=== PATIENT | female | born 1950 | race Caucasian/White ===

== ENCOUNTER → 2016-10-05 | Outpatient (CLI) | payer MEDICARE ==
--- NOTE | 2016-10-05 15:15 | WOMENS IMAGING REPORT ---
EXAM DESCRIPTION: 3D SCREENING MAMMO BILAT COMPLETED DATE/TIME: 10/05/2016 2:24 pm REASON FOR STUDY: Z12.31, ROUTINE SCREENING MAMMO Z12.31 ENCNTR SCREEN MAMMOGRAM FOR MALIGNANT NEOP LASM OF ALLY COMPARISON: 10/23/2014 and 09/28/2013. TECHNIQUE: Standard craniocaudal and mediolateral oblique views of each breast recorded using digita l acquisition and breast tomosynthesis. LIMITATIONS: None. FINDINGS: No masses, calcifications or architectural distortion. No areas of suspicion. Read with the assistance of CAD. .[facility] - R2 Cenova Version 1.3 .[facility] Imaging - R2 Cenova Version 1.3 .[facility] - R2 Cenova Version 2.4 [place] [place] Cenova Version 2.4 .[facility] - R2 Ladle Filler Version 9.2 IMPRESSION: NORMAL MAMMOGRAM. BIRADS 1. BREAST DENSITY: c. The breasts are heterogeneously dense, which may obscure small masses. BIRAD: 1 NEGATIVE RECOMMENDATION: ROUTINE SCREENING COMMENT: The patient has been notified of the results by letter per SA requirements. Additional no tification policies are in place for contacting patient with suspicious or incomplete findings. Quality ID #225: The [employer] recommends an annual screening mammogram for women aged 40 years or over. This facility utilizes a reminder system to ensure that all patients receive reminder letters, and/or direct phone calls for appointments. This includes reminders for routine scr eening mammograms, diagnostic mammograms, or other Breast Imaging Interventions when appropriate. Th is patient will be placed in the appropriate reminder system. The [employer] (ACR) has developed recommendations for screening MRI of the breast s in certain patient populations, to be used in conjunction with mammography. Breast MRI surveillanc e may be appropriate for women with more than 20% lifetime risk of developing breast cancer as deter mined by genetic testing, significant family history of the disease, or history of mantle radiation f or Hodgkins Disease. ACR Practice Guidelines 2008. DBT Technology DBT is a type of tomographic mammography. With conventional mammography, overlapping breast tissue ma y make lesions difficult to detect, even with good compression. DBT uses an x-ray tube that rotates a round the breast, taking images at different angles. These images are then combined to create thin sl ices of the breast that the radiologist can view as a 3D reconstruction. The Maven7 unit can perform full-field digital mammograms (2D imaging); or DBT (3D imaging); or both, in a combination mode that quickly performs both the mammogram and the tomosynthesis scan while the breast is still compressed. PQRS 6045F: Fluoroscopic imaging is not utilized for breast tomosynthesis. TECHNICAL DOCUMENTATION: FINDING NUMBER: (1) ASSESSMENT: (1) JOB ID: [id number] [employer]- All Rights Reserved
== END ==
LOC: WI 13:42
PROVIDERS: ATTEND Internal Medicine
DX: Z12.31 Encounter for screening mammogram for malignant neoplasm of breast (principal)
CPT/HCPCS: 77063; G0202; 77067

== ENCOUNTER → 2017-09-28 | Outpatient (CLI) | payer MEDICARE ==
--- NOTE | 2017-09-28 12:29 | RADIOLOGY REPORT (SQ) ---
EXAM DESCRIPTION: MRI HEAD COMBO COMPLETED DATE/TIME: 09/28/2017 12:07 pm REASON FOR STUDY: ASYMETRICAL HEARING LOSS H91.8X1 OTHER SPECIFIED HEARING LOSS, RIGHT EAR COMPARISON: None. TECHNIQUE: Multiplanar imaging includes noncontrasted T1, T2, FLAIR, diffusion with ADC map and post gadolinium contrast T1 sequences. Images stored on PACS. Additional thin section axial and coronal T1 pre and post-contrast images were obtained through the i nternal auditory canals and inner ear structures. Thin section axial T2 weighted images through the internal auditory canals and inner ear structures. CONTRAST TYPE AND DOSE: 15 mL Prohance. RENAL FUNCTION: Estimated GFR 54 LIMITATIONS: None. FINDINGS: ANATOMY: No anomalies. Normal vascular flow voids. Pituitary fossa normal. CSF SPACES: Normal in size and contour. No hemorrhage. CEREBRUM: No MR evidence of acute ischemic change, acute intracranial hemorrhage, mass effect, or mid line shift. There is spotty bifrontal and biparietal increased FLAIR/ T2 signal in the hemispheric w jacob matter from minimal age-appropriate small vessel ischemic change. POSTERIOR FOSSA: No signal alteration. No hemorrhage. No edema, masses, or mass effect. Internal leena tory canals, cerebellopontine angles, mastoids normal. No abnormal enhancement post contrast. DIFFUSION IMAGING: Negative for acute or subacute infarction. ORBITS: No masses. Globes normal. PARANASAL SINUSES: No fluid levels. Mucosa normal. OTHER: No other significant finding. IMPRESSION: ESSENTIALLY NORMAL FOR AGE MRI OF THE BRAIN WITHOUT AND WITH INTRAVENOUS GADOLINIUM CONT RAST. EVIDENCE OF ACUTE STROKE: NO. TECHNICAL DOCUMENTATION: JOB ID: [id number] [employer]- All Rights Reserved Reading location - IP/workstation name: [facility] [email or web address]
== END ==
LOC: RAD 10:35
PROVIDERS: ATTEND Otolaryngology
DX: H91.8X1 Other specified hearing loss, right ear (principal)
CPT/HCPCS: 82565; 70553; A9576

== ENCOUNTER → 2018-05-02 | Outpatient (CLI) | payer MEDICARE ==
--- NOTE | 2018-05-03 13:41 | WOMENS IMAGING REPORT ---
EXAM DESCRIPTION: 3D SCREENING MAMMO BILAT COMPLETED DATE/TIME: 05/02/2018 2:07 pm REASON FOR STUDY: Z12.31 SCREENING MAMMO Z12.31 ENCNTR SCREEN MAMMOGRAM FOR MALIGNANT NEOPLASM OF B RE COMPARISON: 10/05/2016 and 10/23/2014. TECHNIQUE: Standard craniocaudal and mediolateral oblique views of each breast recorded using digita l acquisition and breast tomosynthesis. LIMITATIONS: None. FINDINGS: No masses, calcifications or architectural distortion. No areas of suspicion. Read with the assistance of CAD. .[facility] - R2 Cenova Version 1.3 .[facility] Imaging - R2 Cenova Version 2.1 .[facility] Imaging - R2 Cenova Version 2.4 .[facility] [place] - R2 Cenova Version 2.4 .[facility] - R2 Buttonholer Version 9.2 IMPRESSION: NORMAL MAMMOGRAM. BIRADS 1. BREAST DENSITY: c. The breasts are heterogeneously dense, which may obscure small masses. BIRAD: 1 NEGATIVE RECOMMENDATION: ROUTINE SCREENING COMMENT: The patient has been notified of the results by letter per SA requirements. Additional no tification policies are in place for contacting patient with suspicious or incomplete findings. Quality ID #[id number]: The [employer] recommends an annual screening mammogram for women aged 40 years or over. This facility utilizes a reminder system to ensure that all patients receive reminder letters, and/or direct phone calls for appointments. This includes reminders for routine scr eening mammograms, diagnostic mammograms, or other Breast Imaging Interventions when appropriate. Th is patient will be placed in the appropriate reminder system. The [employer] (ACR) has developed recommendations for screening MRI of the breast s in certain patient populations, to be used in conjunction with mammography. Breast MRI surveillanc e may be appropriate for women with more than 20% lifetime risk of developing breast cancer as deter mined by genetic testing, significant family history of the disease, or history of mantle radiation f or Hodgkins Disease. ACR Practice Guidelines 2008. DBT Technology DBT is a type of tomographic mammography. With conventional mammography, overlapping breast tissue ma y make lesions difficult to detect, even with good compression. DBT uses an x-ray tube that rotates a round the breast, taking images at different angles. These images are then combined to create thin sl ices of the breast that the radiologist can view as a 3D reconstruction. The G[employer] unit can perform full-field digital mammograms (2D imaging); or DBT (3D imaging); or both, in a combination mode that quickly performs both the mammogram and the tomosynthesis scan while the breast is still compressed. PQRS 6045F: Fluoroscopic imaging is not utilized for breast tomosynthesis. TECHNICAL DOCUMENTATION: FINDING NUMBER: (1) ASSESSMENT: (1) JOB ID: [id number] [employer]- All Rights Reserved Reading location - IP/workstation name: [email or web address]
== END ==
LOC: WI 13:07
PROVIDERS: ATTEND Obstetrics & Gynecology Gynecology
DX: Z12.31 Encounter for screening mammogram for malignant neoplasm of breast (principal)
CPT/HCPCS: 77063; 77067

== ENCOUNTER 2019-09-29 11:58 | Inpatient (IN) | payer MEDICARE ==
[2019-09-29] MEDS ORDERED: ASPIRIN 81 MG TABLET, CHEWABLE PO ONE (12:29)
[2019-09-29] MEDS ORDERED: METOCLOPRAMIDE HCL INJ/PF 10 MG/2 ML SDV IV ONE (12:31)
[2019-09-29] MEDS ORDERED: MAG HYDROX/AL HYDROX/SIMETH SUSP 30 ML UDCUP PO PRN (12:31)
[2019-09-29] MEDS ORDERED: LIDOCAINE 2% VISCOUS SOLN 15 ML UDCUP PO ONE (12:31)
--- NOTE | 2019-09-29 12:33 | ER Document Report ---
ED Medical Screen (RME) - General Chief Complaint: Chest Pain Stated Complaint: CHEST PAIN Time Seen by Provider: 09/29/19 12:28 Primary Care Provider: WHIT WINSLOW MD [Primary Care Provider] - Follow up as needed Mode of Arrival: Ambulatory Information source: Patient Notes: 69-year-old female presents to ED for complaint of upper back and chest pain. She states the chest pain radiates to her shoulder. She states she does have a history of reflux and she took some reflux medicine last night when she had some reflux but this is not her reflux type pain. Patient has a history of reflux fractured ankle high cholesterol bilateral tubal gases and cholecystectomy. She does not smoke drink or drugs. I have greeted and performed a rapid initial assessment of this patient. A comprehensive ED assessment and evaluation of the patient, analysis of test results and completion of medical decision making process will be conducted by an additional ED providers. TRAVEL OUTSIDE OF THE [place] IN LAST 30 DAYS: No - Related Data Allergies/Adverse Reactions: Sulfa (Sulfonamide Antibiotics) Allergy (Verified 01/30/13 08:49) Home Medications: Xanax, levothyroxine, Tramadol Past Medical History - Past Medical History Cardiac Medical History: Reports: Hx Hypercholesterolemia Endocrine Medical History: Reports: Hx Hypothyroidism Traumatic Medical History: Reports: Hx Fractures - FOOT Past Surgical History: Reports: Hx Cholecystectomy, Hx Tubal Ligation - Immunizations Hx Diphtheria, Pertussis, Tetanus Vaccination: No Physical Exam - Vital signs Vitals: Temp Pulse Resp BP Pulse Ox 97.8 F 64 20 155/80 H 97 09/29/19 12:11 09/29/19 12:11 09/29/19 12:11 09/29/19 12:11 09/29/19 12:11 Course - Vital Signs Vital signs: Temp Pulse Resp BP Pulse Ox 97.8 F 64 20 155/80 H 97 09/29/19 12:11 09/29/19 12:11 09/29/19 12:11 09/29/19 12:11 09/29/19 12:11 Doctor's Discharge - Discharge Referrals: WHIT WINSLOW MD [Primary Care Provider] - Follow up as needed
--- NOTE | 2019-09-29 12:58 | RADIOLOGY REPORT (SQ) ---
EXAM DESCRIPTION: CHEST 2 VIEWS IMAGES COMPLETED DATE/TIME: 09/29/2019 12:43 pm REASON FOR STUDY: Chest pain COMPARISON: 10/08/2008 EXAM PARAMETERS: NUMBER OF VIEWS: two views TECHNIQUE: Digital Frontal and Lateral radiographic views of the chest acquired. RADIATION DOSE: NA LIMITATIONS: none FINDINGS: LUNGS AND PLEURA: Minimal atelectasis in the left base. Lung raines otherwise clear. No effusions. MEDIASTINUM AND HILAR STRUCTURES: No masses or contour abnormalities. HEART AND VASCULAR STRUCTURES: Heart normal size. No evidence for failure. BONES: No acute findings. HARDWARE: None in the chest. OTHER: No other significant finding. IMPRESSION: No significant findings in the chest. TECHNICAL DOCUMENTATION: JOB ID: [id number] 2010 [employer]- All Rights Reserved Reading location - IP/workstation name: [email or web address]
--- NOTE | 2019-09-29 13:06 | EKG REPORT ---
SEVERITY:- ABNORMAL ECG - SINUS RHYTHM REPOL ABNRM, PROBABLE ISCHEMIA, INFERIOR LDS BORDERLINE ST ELEVATION, LATERAL LEADS : Confirmed by: Isaak Levin MD 29-Sep-2019 13:06:14
[2019-09-29 13:10] LABS: ABSOLUTE EOSINOPHILS # (AUTO) 0.1 10^3/uL (0.0-0.6); ABSOLUTE LYMPHOCYTES (AUTO) 1.5 10^3/uL (0.5-4.7); ABSOLUTE MONOCYTES (AUTO) 0.7 10^3/uL (0.1-1.4); ABSOLUTE NEUT (AUTO) 4.2 10^3/uL (1.7-8.2); BASOPHILS % (AUTO) 0.4 % (0-2); EOSINOPHILS % (AUTO) 1.1 % (0-6); HEMATOCRIT 42.6 % (36.0-47.0); HEMOGLOBIN 14.5 g/dL (12.0-15.5); LYMPHOCYTES % (AUTO) 22.4 % (13-45); MEAN CORPUSCULAR HEMOGLOBIN 32.2 pg (27.0-33.4); MEAN CORPUSCULAR VOLUME 95 fl (80-97); MONOCYTES % (AUTO) 11.4 % (3-13); PLATELET COUNT 246 10^3/uL (150-450); RED CELL DISTRIBUTION WIDTH 14.1 % (11.5-14.0); SEGMENTED NEUTROPHILS % (AUTO) 64.7 % (42-78); TOTAL CELLS COUNTED % (AUTO) 100 %; WHITE BLOOD COUNT 6.6 10^3/uL (4.0-10.5)
[2019-09-29 13:30] LABS: ALBUMIN 4.6 g/dL (3.5-5.0); ALKALINE PHOSPHATASE 71 U/L (38-126); ANION GAP 9 (5-19); ASPARTATE AMINO TRANSFERASE 24 U/L (14-36); BILIRUBIN,TOTAL 0.5 mg/dL (0.2-1.3); BLOOD UREA NITROGEN 17 mg/dL (7-20); CALCIUM 9.7 mg/dL (8.4-10.2); CARBON DIOXIDE 24 mmol/L (22-30); CHLORIDE 106 mmol/L (98-107); CREATINE KINASE 51 U/L (30-135); GLUCOSE 122 mg/dL (75-110); POTASSIUM 3.8 mmol/L (3.6-5.0); TOTAL PROTEIN 7.7 g/dL (6.3-8.2)
[2019-09-29] MEDS ORDERED: NITROGLYCERIN 0.4 MG/TAB 25 TAB/BOTTLE SL PRN (13:52)
--- NOTE | 2019-09-29 14:02 | ER Document Report ---
ED General - General Chief Complaint: Chest Pain Stated Complaint: CHEST PAIN Time Seen by Provider: 09/29/19 12:28 Primary Care Provider: WHIT WINSLOW MD [Primary Care Provider] - Follow up as needed Mode of Arrival: Ambulatory Notes: 69-year-old woman presents to the emergency department with a complaint of pain in the substernal chest nonradiating onset this morning. She states that she began having some tightness and fullness in her upper back and then in her anterior chest. States that she had drank orange juice earlier and felt like she needed to belch. She also notes sweating and feeling lightheaded. Her symptoms are increased, pain was noted to be 7/10. She decided to drive herself to the emergency department for further evaluation and treatment. She denies a history of coronary artery disease, denies hypertension, smoking, diabetes mellitus or other known risk factor. She was given aspirin 84 mg, states that the pain is now a 5/10. TRAVEL OUTSIDE OF THE [place] IN LAST 30 DAYS: No - Related Data Allergies/Adverse Reactions: Sulfa (Sulfonamide Antibiotics) Allergy (Verified 01/30/13 08:49) Home Medications: Xanax, levothyroxine, Tramadol Past Medical History - General Information source: Patient - Social History Smoking Status: Never Smoker Family History: Reviewed & Not Pertinent - Past Medical History Cardiac Medical History: Reports: Hx Hypercholesterolemia Endocrine Medical History: Reports: Hx Hypothyroidism Traumatic Medical History: Reports: Hx Fractures - FOOT Past Surgical History: Reports: Hx Cholecystectomy, Hx Tubal Ligation - Immunizations Hx Diphtheria, Pertussis, Tetanus Vaccination: No Review of Systems - Review of Systems Notes: Constitutional: Negative for fever. HENT: Negative for sore throat. Eyes: Negative for visual changes. Cardiovascular: + Chest pain. Respiratory: Negative for shortness of breath. Gastrointestinal: Negative for abdominal pain, vomiting or diarrhea. Genitourinary: Negative for dysuria. Musculoskeletal: Negative for back pain. Skin: Negative for rash. Neurological: Negative for headaches, weakness or numbness. 10 point ROS negative except as marked above and in HPI. Physical Exam - Vital signs Vitals: Temp Pulse Resp BP Pulse Ox 97.8 F 64 20 155/80 H 97 09/29/19 12:11 09/29/19 12:11 09/29/19 12:11 09/29/19 12:11 09/29/19 12:11 - Notes Notes: PHYSICAL EXAMINATION: Physical Exam: General: Well-nourished well-developed 69-year-old woman in no acute distress HEENT: NC/AT, pupils equal round and reactive to light, MM moist,nares clear, oropharynx clear, airway patent Neck: supple, no adenopathy, no masses. Good range of motion Lungs: clear, no wheezing, no rales no rhonchi CVS: Regular rate and rhythm no murmur gallop or rub Abdomen: Soft, active, nontender, no masses, no hepatosplenomegaly Ext: No edema, clubbing or cyanosis. Neuro: Alert and responsive, moving all 4 extremities on command, cranial nerves intact, no focal findings Skin: Intact no open lesions, no rash PSYCH: Normal mood, normal affect. Course - Re-evaluation Re-evalutation: 09/29/19 17:09 EKG is unchanged, patient is chest pain-free. Troponin slight bump. Discussed with Dr. Isaak Levin states that the patient could stay at [facility] for stratification and outpatient schedule if stable. Will discuss the patient with Dr. Winslow regarding the admission. - Vital Signs Vital signs: Temp Pulse Resp BP Pulse Ox 97.7 F 64 17 129/85 H 98 09/29/19 16:05 09/29/19 12:11 09/29/19 14:01 09/29/19 14:00 09/29/19 14:01 - Laboratory Result Diagrams: 09/29/19 12:54 09/29/19 12:54 Laboratory results interpreted by me: 09/29/19 09/29/19 12:54 12:54 RDW 14.1 H Glucose 122 H 09/29/19 13:58 I have reviewed laboratory data and used this information for the treatment decisions regarding the patient. - Diagnostic Test Radiology reviewed: Image reviewed, Reports reviewed Radiology results interpreted by me: 09/29/19 13:59 Chest x-ray no acute cardiopulmonary findings. - EKG Interpretation by Me EKG shows normal: Sinus rhythm, [place] - Normal, QRS Complexes, ST-T Waves - Repolarization abnormality with slight upward ST elevation in I, aVL, inverted T wave in III and AVF Rate: Normal - 70 Rhythm: NSR Discharge - Discharge Clinical Impression: Elevated troponin I level Chest pain Qualifiers: Chest pain type: unspecified Qualified Code(s): R07.9 - Chest pain, unspecified Condition: Good Disposition: ADMITTED INPATIENT Admitting Provider: [facility] Admitted: Telemetry Referrals: WHIT WINSLOW MD [Primary Care Provider] - Follow up as needed
[2019-09-29] MEDS ORDERED: NITROGLYCERIN 2% OINTMENT 1 GM PACKET TP ONE (14:04)
--- NOTE | 2019-09-29 17:31 | EKG REPORT ---
SEVERITY:- ABNORMAL ECG - SINUS RHYTHM PROBABLE LEFT VENTRICULAR HYPERTROPHY : Confirmed by: Isaak Levin MD 29-Sep-2019 17:31:22
[2019-09-29] MEDS ORDERED: ENOXAPARIN SODIUM INJ 40 MG/0.4 ML DISP.SYRIN SUBCUT SCH (19:30)
[2019-09-29 20:36] LABS: HEMATOCRIT 41.7 % (36.0-47.0); HEMOGLOBIN 14.2 g/dL (12.0-15.5); MEAN CORPUSCULAR HEMOGLOBIN 32.1 pg (27.0-33.4); MEAN CORPUSCULAR HGB CONC 33.9 g/dL (32.0-36.0); MEAN CORPUSCULAR VOLUME 94 fl (80-97); PLATELET COUNT 253 10^3/uL (150-450); RED BLOOD COUNT 4.42 10^6/uL (3.72-5.28); RED CELL DISTRIBUTION WIDTH 13.9 % (11.5-14.0); WHITE BLOOD COUNT 7.2 10^3/uL (4.0-10.5)
[2019-09-29 20:52] LABS: ALBUMIN 4.5 g/dL (3.5-5.0); ALKALINE PHOSPHATASE 69 U/L (38-126); ANION GAP 8 (5-19); ASPARTATE AMINO TRANSFERASE 86 U/L (14-36); BILIRUBIN,TOTAL 0.6 mg/dL (0.2-1.3); BLOOD UREA NITROGEN 15 mg/dL (7-20); CALCIUM 9.8 mg/dL (8.4-10.2); CARBON DIOXIDE 26 mmol/L (22-30); CHLORIDE 105 mmol/L (98-107); GLUCOSE 103 mg/dL (75-110); POTASSIUM 4.2 mmol/L (3.6-5.0); TOTAL PROTEIN 7.6 g/dL (6.3-8.2)
[2019-09-29] MEDS ORDERED: TRAMADOL HCL 50 MG TABLET PO PRN (20:57)
[2019-09-29] MEDS ORDERED: ALPRAZOLAM 0.5 MG TABLET PO PRN (20:57)
[2019-09-29] MEDS ORDERED: CLOPIDOGREL BISULFATE 300 MG TABLET PO ONE (21:00)
[2019-09-29 21:03] LABS: CREATINE KINASE MB 43.9 ng/mL (<4.55)
[2019-09-29 21:12] LABS: TROPONIN I 15.1 ng/mL
[2019-09-29] MEDS: METOPROLOL TARTRATE 25 MG TABLET PO SCH (21:19)
[2019-09-29] MEDS: ENOXAPARIN SODIUM INJ 80 MG/0.8 ML DISP.SYRIN SUBCUT SCH (21:19)
[2019-09-29] MEDS ORDERED: ATORVASTATIN CALCIUM 80 MG TABLET PO ONE (21:37)
[2019-09-29] MEDS ORDERED: ATORVASTATIN CALCIUM 80 MG TABLET PO SCH (22:00)
[2019-09-30 02:44] LABS: TROPONIN I 24.1 ng/mL
[2019-09-30] MEDS ORDERED: LEVOTHYROXINE SODIUM 0.1 MG TABLET PO SCH ×2 (06:00)
[2019-09-30] MEDS ORDERED: LEVOTHYROXINE SODIUM 0.025 MG TABLET PO SCH (06:00)
[2019-09-30 08:00] LABS: CHOLESTEROL 269.36 mg/dL (0-200); TRIGLYCERIDES 231 mg/dL (<150)
[2019-09-30 08:11] LABS: CREATINE KINASE MB 38.5 ng/mL (<4.55); DIRECT LDL 181 mg/dL (<100); TROPONIN I 16.8 ng/mL
[2019-09-30 08:12] LABS: VLDL CHOLESTEROL 46.2 mg/dL (10-31)
[2019-09-30] MEDS: ENOXAPARIN SODIUM INJ 80 MG/0.8 ML DISP.SYRIN SUBCUT SCH (09:38)
[2019-09-30] MEDS: METOPROLOL TARTRATE 25 MG TABLET PO SCH (09:38)
[2019-09-30] MEDS ORDERED: ASPIRIN 81 MG TABLET, CHEWABLE PO SCH (10:00)
[2019-09-30] MEDS ORDERED: CLOPIDOGREL BISULFATE 75 MG TABLET PO SCH (10:00)
--- NOTE | 2019-09-30 11:35 | PDOC H&P ---
History of Present Illness Admission Date/PCP: 09/29/19 18:20 WHIT WINSLOW MD History of Present Illness: SAMUEL CLIFTON is a 69 year old female she came to the emergency room for e valuation of substernal chest pain, she stated that the pain began in the upper back and then the anterior chest, there was tightness in the chest there was shortness of breath. She has a history of hypercholesterolemia, poorly adherent to statin therapy because of myalgia. She was evaluated in the ER the initial twelve-lead EKG revealed ST elevation in lateral leads lead I and aVL with reciprocal T wave inversion in inferior leads that suggest ST elevated NC but repeat EKG 2 hours after the initial EKG was normal suggesting reversible ischemia. Patient was admitted to the hospital for management the initial troponin was 0.026, it progressively increased, peak at 24 suggesting myocardial infarction. I saw patient by the bedside she has no more chest pain, she is comfortable Past Medical History Cardiac Medical History: Reports: Hyperlipidema Endocrine Medical History: Reports: Hypothyroidism Musculoskeltal Medical History: Reports: Arthritis Psychiatric Medical History: Reports: General Anxiety Disorder Past Surgical History Past Surgical History: Reports: Cholecystectomy, Tubal Ligation Social History Smoking Status: Never Smoker Frequency of Alcohol Use: None Hx Recreational Drug Use: No Family History Family History: Reviewed & Not Pertinent Parental Family History Reviewed: Yes Children Family History Reviewed: Yes Sibling(s) Family History Reviewed.: Yes Medication/Allergy Home Medications: Levothyroxine Sodium [Synthroid 100 Mcg Tablet] 125 mcg PO Q6AM 01/30/13 Alprazolam [Xanax 0.5 mg Tablet] 0.5 mg PO BIDP PRN 09/29/19 Tramadol HCl [Ultram 50 mg Tablet] 50 mg PO Q4HP PRN 09/29/19 Allergies/Adverse Reactions: Sulfa (Sulfonamide Antibiotics) Allergy (Verified 01/30/13 08:49) Review of Systems Constitutional: ABSENT: chills, fever(s), headache(s), weight gain, weight loss Eyes: ABSENT: visual disturbances Ears: ABSENT: hearing changes Cardiovascular: PRESENT: chest pain Respiratory: ABSENT: cough, hemoptysis Gastrointestinal: ABSENT: abdominal pain, constipation, diarrhea, hematemesis, hematochezia, nausea, vomiting Genitourinary: ABSENT: dysuria, hematuria Musculoskeletal: ABSENT: joint swelling Integumentary: ABSENT: rash, wounds Neurological: ABSENT: abnormal gait, abnormal speech, confusion, dizziness, focal weakness, syncope Psychiatric: ABSENT: anxiety, depression, homidical ideation, suicidal ideation Endocrine: ABSENT: cold intolerance, heat intolerance, menstrual abnormalities, polydipsia, polyuria Hematologic/Lymphatic: ABSENT: easy bleeding, easy bruising, lymphadenopathy Physical Exam Vital Signs: Temp Pulse Resp BP Pulse Ox 97.8 F 57 L 21 H 121/67 99 09/30/19 07:52 09/30/19 07:52 09/30/19 07:52 09/30/19 07:52 09/30/19 07:52 Intake & Output 09/29/19 09/30/19 10/01/19 06:59 06:59 06:59 Intake Total 150 Output Total 200 Balance -50 Weight 61.1 kg General appearance: PRESENT: no acute distress, well-developed, well-nourished Head exam: PRESENT: atraumatic, normocephalic Eye exam: PRESENT: conjunctiva pink, EOMI, PERRLA Ear exam: PRESENT: normal external ear exam Mouth exam: PRESENT: moist, tongue midline Neck exam: PRESENT: full ROM Respiratory exam: PRESENT: clear to auscultation loreta Cardiovascular exam: PRESENT: RRR, +S1, +S2 Pulses: PRESENT: normal dorsalis pedis pul, +2 pedal pulses bilateral Vascular exam: PRESENT: normal capillary refill GI/Abdominal exam: PRESENT: normal bowel sounds, soft Rectal exam: PRESENT: deferred Neurological exam: PRESENT: alert, awake, oriented to person, oriented to place, oriented to time, oriented to situation, CN II-XII grossly intact Psychiatric exam: PRESENT: appropriate affect, normal mood Skin exam: PRESENT: dry, intact, warm Results Laboratory Results: 09/29/19 20:22 09/29/19 20:22 09/29/19 09/29/19 09/29/19 12:54 12:54 20:22 WBC 6.6 7.2 RBC 4.50 4.42 Hgb 14.5 14.2 Hct 42.6 41.7 MCV 95 94 MCH 32.2 32.1 MCHC 34.0 33.9 RDW 14.1 H 13.9 Plt Count 246 253 Seg Neutrophils % 64.7 Sodium 139.1 Potassium 3.8 Chloride 106 Carbon Dioxide 24 Anion Gap 9 BUN 17 Creatinine 0.78 Est GFR ( Amer) > 60 Glucose 122 H Calcium 9.7 Magnesium 2.2 Total Bilirubin 0.5 AST 24 Alkaline Phosphatase 71 Total Protein 7.7 Albumin 4.6 Triglycerides Cholesterol LDL Cholesterol Direct VLDL Cholesterol HDL Cholesterol Lipase 117.8 09/29/19 09/30/19 20:22 07:32 WBC RBC Hgb Hct MCV MCH MCHC RDW Plt Count Seg Neutrophils % Sodium 138.5 Potassium 4.2 Chloride 105 Carbon Dioxide 26 Anion Gap 8 BUN 15 Creatinine 0.72 Est GFR ( Amer) > 60 Glucose 103 Calcium 9.8 Magnesium Total Bilirubin 0.6 AST 86 H Alkaline Phosphatase 69 Total Protein 7.6 Albumin 4.5 Triglycerides 231 H Cholesterol 269.36 H LDL Cholesterol Direct 181 H VLDL Cholesterol 46.2 H HDL Cholesterol 32 L Lipase 09/29/19 09/29/19 09/29/19 12:54 12:54 14:27 Creatine Kinase 51 CK-MB (CK-2) Troponin I 0.026 0.198 09/29/19 09/29/19 09/30/19 20:22 20:22 01:47 Creatine Kinase 597 H 699 H CK-MB (CK-2) 43.90 H Troponin I 15.100 09/30/19 09/30/19 01:47 07:32 Creatine Kinase CK-MB (CK-2) 48.00 H 38.50 H Troponin I 24.100 16.800 Impressions: Chest X-Ray 09/29/19 12:29 IMPRESSION: No significant findings in the chest. Assessment & Plan - Diagnosis (1) Non-STEMI (non-ST elevated myocardial infarction) Is this a current diagnosis for this admission?: Yes Plan: Patient with non-ST NC, start treatment per protocol, Lovenox 1 mg/kg body weight every 12, antiplatelet Plavix 300 mg p.o. now 75 p.o. daily, aspirin 81 mg 2 tablet p.o. now, statin therapy, atorvastatin, consult cardiology Dr. Levin. Patient poorly adherent to statin therapy (2) Hypercholesteremia Is this a current diagnosis for this admission?: Yes
--- NOTE | 2019-09-30 11:55 | EKG REPORT ---
SEVERITY:- ABNORMAL ECG - SINUS BRADYCARDIA ABNORMAL T, CONSIDER ISCHEMIA, ANT-LAT LEADS : Confirmed by: Isaak Levin MD 30-Sep-2019 11:54:41
--- NOTE | 2019-09-30 11:56 | EKG REPORT ---
SEVERITY:- ABNORMAL ECG - SINUS BRADYCARDIA ABNORMAL T, CONSIDER ISCHEMIA, ANT-LAT LEADS : Confirmed by: Isaak Levin MD 30-Sep-2019 11:55:07
[2019-09-30 12:00] VITALS: BP 130/78
--- NOTE | 2019-09-30 12:18 | PDOC PROGRESS REPORT ---
Subjective Progress Note for:: 09/30/19 Subjective:: Patient was admitted yesterday when she presented with acute non-ST elevated CT, presently chest pain-free, she will need cardiac catheterization, this will be arranged by the food court team member Dr. Levin. Reason For Visit: CHEST PAIN Physical Exam Vital Signs: Temp Pulse Resp BP Pulse Ox 97.8 F 58 L 21 H 130/78 H 100 09/30/19 10:57 09/30/19 10:57 09/30/19 10:57 09/30/19 10:57 09/30/19 10:57 Intake & Output 09/29/19 09/30/19 10/01/19 06:59 06:59 06:59 Intake Total 150 240 Output Total 200 Balance -50 240 Weight 61.1 kg General appearance: PRESENT: no acute distress, well-developed, well-nourished Head exam: PRESENT: atraumatic, normocephalic Eye exam: PRESENT: conjunctiva pink, EOMI, PERRLA Ear exam: PRESENT: normal external ear exam Mouth exam: PRESENT: moist, tongue midline Neck exam: PRESENT: full ROM Respiratory exam: PRESENT: clear to auscultation loreta Cardiovascular exam: PRESENT: RRR, +S1, +S2 Pulses: PRESENT: normal dorsalis pedis pul, +2 pedal pulses bilateral Vascular exam: PRESENT: normal capillary refill GI/Abdominal exam: PRESENT: normal bowel sounds, soft Rectal exam: PRESENT: deferred Neurological exam: PRESENT: alert, awake, oriented to person, oriented to place, oriented to time, oriented to situation, CN II-XII grossly intact Psychiatric exam: PRESENT: appropriate affect, normal mood Skin exam: PRESENT: dry, intact, warm Results Laboratory Results: 09/29/19 20:22 09/29/19 20:22 09/29/19 09/29/19 09/29/19 12:54 12:54 20:22 WBC 6.6 7.2 RBC 4.50 4.42 Hgb 14.5 14.2 Hct 42.6 41.7 MCV 95 94 MCH 32.2 32.1 MCHC 34.0 33.9 RDW 14.1 H 13.9 Plt Count 246 253 Seg Neutrophils % 64.7 Sodium 139.1 Potassium 3.8 Chloride 106 Carbon Dioxide 24 Anion Gap 9 BUN 17 Creatinine 0.78 Est GFR ( Amer) > 60 Glucose 122 H Calcium 9.7 Magnesium 2.2 Total Bilirubin 0.5 AST 24 Alkaline Phosphatase 71 Total Protein 7.7 Albumin 4.6 Triglycerides Cholesterol LDL Cholesterol Direct VLDL Cholesterol HDL Cholesterol Lipase 117.8 09/29/19 09/30/19 20:22 07:32 WBC RBC Hgb Hct MCV MCH MCHC RDW Plt Count Seg Neutrophils % Sodium 138.5 Potassium 4.2 Chloride 105 Carbon Dioxide 26 Anion Gap 8 BUN 15 Creatinine 0.72 Est GFR ( Amer) > 60 Glucose 103 Calcium 9.8 Magnesium Total Bilirubin 0.6 AST 86 H Alkaline Phosphatase 69 Total Protein 7.6 Albumin 4.5 Triglycerides 231 H Cholesterol 269.36 H LDL Cholesterol Direct 181 H VLDL Cholesterol 46.2 H HDL Cholesterol 32 L Lipase 09/29/19 09/29/19 09/29/19 12:54 12:54 14:27 Creatine Kinase 51 CK-MB (CK-2) Troponin I 0.026 0.198 09/29/19 09/29/19 09/30/19 20:22 20:22 01:47 Creatine Kinase 597 H 699 H CK-MB (CK-2) 43.90 H Troponin I 15.100 09/30/19 09/30/19 09/30/19 01:47 07:32 07:32 Creatine Kinase 592 H CK-MB (CK-2) 48.00 H 38.50 H Troponin I 24.100 16.800 Impressions: Chest X-Ray 09/29/19 12:29 IMPRESSION: No significant findings in the chest. Assessment & Plan - Diagnosis (1) Non-STEMI (non-ST elevated myocardial infarction) Is this a current diagnosis for this admission?: Yes Plan: Patient to continue present line of management, she will need cardiac authorization (2) Hypercholesteremia Is this a current diagnosis for this admission?: Yes - Time Time Spent with patient: 35 or more minutes Level of Care: IMCU Medications reviewed and adjusted accordingly: Yes Anticipated discharge: [facility] Within: within 24 hours - Inpatient Certification Based on my medical assessment, after consideration of the patient's comorbidities, presenting symptoms, or acuity I expect that the services needed warrant INPATIENT care.: Yes I certify that my determination is in accordance with my understanding of Medicare's requirements for reasonable and necessary INPATIENT services [42 CFR 412.3e].: Yes
--- NOTE | 2019-09-30 13:16 | PDOC CONSULTATION ---
Consultation Consult Date: 09/30/19 Attending physician:: WHIT WINSLOW Provider Consulted: LUANN OJEDA Consult reason:: Chest pain History of Present Illness Admission Date/PCP: 09/29/19 18:20 WHIT WINSLOW MD Patient complains of: Chest pain History of Present Illness: SAMUEL CLIFTON is a 69 year old female With the following active problems 1. Dyslipidemia 2. Hypothyroidism 69-year-old lady with no significant prior cardiac history who presented with complaints of anginal chest pain while she was on her way to the grocery store. She was brought to the emergency room. The initial EKG showed ST elevation in 1 and aVL with reciprocal changes in the inferior leads. After initiation of medical therapy patient became chest pain-free with resolution of ST elevation very quickly. The peak troponin subsequently was 25. I was asked to evaluate the patient at the time of my evaluation the patient is chest pain-free. She is not a smoker Family history of leukemia and hypothyroidism. No surgeries reported. Past Medical History Cardiac Medical History: Reports: Hyperlipidema Endocrine Medical History: Reports: Hypothyroidism Musculoskeltal Medical History: Reports: Arthritis Psychiatric Medical History: Reports: General Anxiety Disorder Denies: Depression Past Surgical History Past Surgical History: Reports: Cholecystectomy, Tubal Ligation Social History Smoking Status: Never Smoker Frequency of Alcohol Use: None Hx Recreational Drug Use: No Family History Family History: Reviewed & Not Pertinent Parental Family History Reviewed: Yes - No familial coronary artery disease. No premature coronary artery disease. Children Family History Reviewed: NA Sibling(s) Family History Reviewed.: NA Medication/Allergy Home Medications: Levothyroxine Sodium [Synthroid 100 Mcg Tablet] 125 mcg PO Q6AM 01/30/13 Alprazolam [Xanax 0.5 mg Tablet] 0.5 mg PO BIDP PRN 09/29/19 Tramadol HCl [Ultram 50 mg Tablet] 50 mg PO Q4HP PRN 09/29/19 Allergies/Adverse Reactions: Sulfa (Sulfonamide Antibiotics) Allergy (Verified 01/30/13 08:49) Review of Systems Constitutional: PRESENT: as per HPI Cardiovascular: PRESENT: chest pain Genitourinary: PRESENT: as per HPI Physical Exam Vital Signs: Temp Pulse Resp BP Pulse Ox 97.8 F 58 L 21 H 130/78 H 100 09/30/19 10:57 09/30/19 10:57 09/30/19 10:57 09/30/19 10:57 09/30/19 10:57 Intake & Output 09/29/19 09/30/19 10/01/19 06:59 06:59 06:59 Intake Total 150 240 Output Total 200 Balance -50 240 Weight 61.1 kg Results Laboratory Results: 09/29/19 20:22 09/29/19 20:22 09/29/19 09/29/19 09/29/19 12:54 12:54 20:22 WBC 6.6 7.2 RBC 4.50 4.42 Hgb 14.5 14.2 Hct 42.6 41.7 MCV 95 94 MCH 32.2 32.1 MCHC 34.0 33.9 RDW 14.1 H 13.9 Plt Count 246 253 Seg Neutrophils % 64.7 Sodium 139.1 Potassium 3.8 Chloride 106 Carbon Dioxide 24 Anion Gap 9 BUN 17 Creatinine 0.78 Est GFR ( Amer) > 60 Glucose 122 H Calcium 9.7 Magnesium 2.2 Total Bilirubin 0.5 AST 24 Alkaline Phosphatase 71 Total Protein 7.7 Albumin 4.6 Triglycerides Cholesterol LDL Cholesterol Direct VLDL Cholesterol HDL Cholesterol Lipase 117.8 09/29/19 09/30/19 20:22 07:32 WBC RBC Hgb Hct MCV MCH MCHC RDW Plt Count Seg Neutrophils % Sodium 138.5 Potassium 4.2 Chloride 105 Carbon Dioxide 26 Anion Gap 8 BUN 15 Creatinine 0.72 Est GFR ( Amer) > 60 Glucose 103 Calcium 9.8 Magnesium Total Bilirubin 0.6 AST 86 H Alkaline Phosphatase 69 Total Protein 7.6 Albumin 4.5 Triglycerides 231 H Cholesterol 269.36 H LDL Cholesterol Direct 181 H VLDL Cholesterol 46.2 H HDL Cholesterol 32 L Lipase 09/29/19 09/29/19 09/29/19 12:54 12:54 14:27 Creatine Kinase 51 CK-MB (CK-2) Troponin I 0.026 0.198 09/29/19 09/29/19 09/30/19 20:22 20:22 01:47 Creatine Kinase 597 H 699 H CK-MB (CK-2) 43.90 H Troponin I 15.100 09/30/19 09/30/19 09/30/19 01:47 07:32 07:32 Creatine Kinase 592 H CK-MB (CK-2) 48.00 H 38.50 H Troponin I 24.100 16.800 EKG Comments: Twelve-lead EKG 09/29/2019 1206 Sinus rhythm, 70 bpm, mild ST elevation in 1 and aVL. The reciprocal changes in 3 and aVF. Twelve-lead EKG 09/29/2019. 1401 Independently reviewed by me. Sinus rhythm, 60 bpm Twelve-lead EKG 09/30/2019 1149 Sinus bradycardia T inversion in anterior lateral leads QTC is 460 ms Twelve-lead EKG 09/30/2019 1148 Bradycardia 56 bpm inversion in anterolateral leads Chest x-ray 09/29/2019 No significant changes Cardiac troponin 0.026 0.198 15.1 24.1 16.8 Impressions: Chest X-Ray 09/29/19 12:29 IMPRESSION: No significant findings in the chest. Assessment & Plan - Diagnosis (1) Chest pain Qualifiers: Chest pain type: chest pain due to myocardial ischemia Qualified Code(s): R07.9 - Chest pain, unspecified Is this a current diagnosis for this admission?: Yes Plan: Presentation consistent with myocardial infarction Continue aspirin Continue clopidogrel Continue statin Continue beta-maria c Continue milligram per kilogram weight-based enoxaparin Review of EKG shows ST elevation in lateral leads (borderline criteria for lateral STEMI ) which apparently quickly resolved with relief of chest pain which resulted in the patient being managed medically initially. The troponin has begun to trend down We will arrange for transfer to [place] for further care and anticipate cardiac catheterization. Care plan was discussed with the patient and all questions were answered Cardiac catheterization was explained to the patient. Risk and benefits of the procedure and benefits from transfer were discussed. The facility at [place] was able to offer cardiac authorization over the weekend. This is imperative given presentation with chest pain and elevated troponin.
--- NOTE | 2019-09-30 13:44 | PDOC TRANSFER SUMMARY ---
General Admission Date/PCP: 09/29/19 18:20 WHIT WINSLOW MD - Transfer Diagnosis (1) Chest pain Is this a current diagnosis for this admission?: Yes - Transfer Medications Home Medications: Levothyroxine Sodium [Synthroid 100 Mcg Tablet] 125 mcg PO Q6AM 01/30/13 Alprazolam [Xanax 0.5 mg Tablet] 0.5 mg PO BIDP PRN 09/29/19 Tramadol HCl [Ultram 50 mg Tablet] 50 mg PO Q4HP PRN 09/29/19 Transfer Medications: Current Medications Al Hydrox/Mg Hydrox/Simethicone (Maalox Plus Susp 30 Udcup) 30 ml PO Q3HP PRN PRN Reason: HEARTBURN Stop: 10/29/19 12:30 Last Admin: 09/29/19 12:42 Dose: 30 ml Documented by: Alprazolam (Xanax 0.5 Mg Tablet) 0.5 mg PO Q12HP PRN PRN Reason: ANXIETY Stop: 10/06/19 20:56 Aspirin (Aspirin 81 Mg Chewable Tablet) 162 mg PO DAILY JOANNA Stop: 10/30/19 09:59 Last Admin: 09/30/19 09:38 Dose: 162 mg Documented by: Atorvastatin Calcium (Lipitor 80 Mg Tablet) 80 mg PO QHS JOANNA Stop: 10/29/19 21:59 Last Admin: 09/29/19 23:21 Dose: 80 mg Documented by: Clopidogrel Bisulfate (Plavix 75 Mg Tablet) 75 mg PO DAILY JOANNA Stop: 10/30/19 09:59 Last Admin: 09/30/19 09:38 Dose: 75 mg Documented by: Enoxaparin Sodium (Lovenox Inj 80 Mg/0.8 Ml Disp.Syrin) 70 mg SUBCUT Q12 JOANNA Stop: 10/29/19 20:29 Last Admin: 09/30/19 09:38 Dose: 70 mg Documented by: Levothyroxine Sodium (Synthroid 0.1 Mg Tablet) 0.1 mg PO Q6AM JOANNA Stop: 10/30/19 05:59 Last Admin: 09/30/19 05:13 Dose: 0.1 mg Documented by: Levothyroxine Sodium (Synthroid 0.025 Mg Tablet) 0.025 mg PO Q6AM JOANNA Stop: 10/30/19 05:59 Last Admin: 09/30/19 05:13 Dose: 0.025 mg Documented by: Metoprolol Tartrate (Lopressor 25 Mg Tablet) 25 mg PO Q12 JOANNA Stop: 10/29/19 20:29 Last Admin: 09/30/19 09:38 Dose: 25 mg Documented by: Tramadol HCl (Ultram 50 Mg Tablet) 50 mg PO Q4HP PRN PRN Reason: FOR PAIN Stop: 10/06/19 20:56 - Allergies Allergies/Adverse Reactions: Sulfa (Sulfonamide Antibiotics) Allergy (Verified 01/30/13 08:49) Hospital Course Hospital Course: Ms. Corrales has no prior significant cardiac illnesses. She takes medication for dyslipidemia. This was recently changed. Patient was admitted to the hospital after presenting with an episode of chest pain. He was on her way to the grocery store when she had stuttering chest pain which resulted her in being brought to the hospital. There was initial subtle ST elevation which did not exceed 1 mm in the lateral leads with some reciprocal changes which quickly resolved on repeat EKG with also resolution of chest pain. At the time of my evaluation the patient was chest pain-free this morning. Patient had been initiated from the time of presentation on weight-based full dose enoxaparin as well as aspirin, clopidogrel, statin as well as beta-maria c. I have discussed the case with interventional cardiology and do feel strongly that the patient could benefit from transfer to [place] where we anticipate that cardiac authorization can be performed perhaps tomorrow to delineate coronary anatomy in the light of elevated troponins which have now declined. Patient is chest pain-free at the moment. We will continue medications. The plan was discussed with the patient and she is agreeable. Appropriate paperwork has been filled out. Physical Exam Vital Signs: Temp Pulse Resp BP Pulse Ox 97.8 F 58 L 21 H 130/78 H 100 09/30/19 10:57 09/30/19 10:57 09/30/19 10:57 09/30/19 10:57 09/30/19 10:57 Intake & Output 09/29/19 09/30/19 10/01/19 06:59 06:59 06:59 Intake Total 150 240 Output Total 200 Balance -50 240 Weight 61.1 kg General appearance: PRESENT: no acute distress, cooperative, well-developed, well-nourished Head exam: PRESENT: atraumatic, normocephalic Eye exam: PRESENT: conjunctiva pink, EOMI Mouth exam: PRESENT: moist Respiratory exam: PRESENT: clear to auscultation loreta, symmetrical, tachypnea, unlabored Cardiovascular exam: PRESENT: RRR, +S1, +S2 Pulses: PRESENT: normal radial pulses GI/Abdominal exam: PRESENT: soft Rectal exam: PRESENT: deferred Musculoskeletal exam: PRESENT: normal inspection Neurological exam: PRESENT: alert, altered, oriented to person, oriented to place, oriented to time Skin exam: PRESENT: dry, intact Results Laboratory Results: 09/29/19 20:22 09/29/19 20:22 09/29/19 09/29/19 09/30/19 20:22 20:22 07:32 WBC 7.2 RBC 4.42 Hgb 14.2 Hct 41.7 MCV 94 MCH 32.1 MCHC 33.9 RDW 13.9 Plt Count 253 Sodium 138.5 Potassium 4.2 Chloride 105 Carbon Dioxide 26 Anion Gap 8 BUN 15 Creatinine 0.72 Est GFR ( Amer) > 60 Glucose 103 Calcium 9.8 Total Bilirubin 0.6 AST 86 H Alkaline Phosphatase 69 Total Protein 7.6 Albumin 4.5 Triglycerides 231 H Cholesterol 269.36 H LDL Cholesterol Direct 181 H VLDL Cholesterol 46.2 H HDL Cholesterol 32 L 09/29/19 09/29/19 09/29/19 12:54 12:54 14:27 Creatine Kinase 51 CK-MB (CK-2) Troponin I 0.026 0.198 09/29/19 09/29/19 09/30/19 20:22 20:22 01:47 Creatine Kinase 597 H 699 H CK-MB (CK-2) 43.90 H Troponin I 15.100 09/30/19 09/30/19 09/30/19 01:47 07:32 07:32 Creatine Kinase 592 H CK-MB (CK-2) 48.00 H 38.50 H Troponin I 24.100 16.800 Impressions: Chest X-Ray 09/29/19 12:29 IMPRESSION: No significant findings in the chest. Plan Discharge Plan: Anticipated transfer to [facility] for cardiac catheterization. Meanwhile we will continue medications at the moment including antiplatelet therapy consisting of aspirin and clopidogrel which was initiated at the time of admission. We will continue weight-based Lovenox therapy. Time Spent: Less than 30 Minutes
== END 2019-09-30 15:58 | disposition short-term general hospital (02) | DRG 313 ==
LOC: ER 11:58 → EH 18:20 → INTOOBSV 18:20 → 4N 19:18 → 3S 20:01 → OBSVTOIN 09-30 14:57
PROVIDERS: ADMIT Internal Medicine; ATTEND Internal Medicine
DX: R07.9 Chest pain, unspecified (principal); Z20.828 Contact with and (suspected) exposure to other viral communicable diseases; Z79.82 Long term (current) use of aspirin; Z79.899 Other long term (current) drug therapy; Z88.2 Allergy status to sulfonamides; E03.9 Hypothyroidism, unspecified; Z83.49 Family history of other endocrine, nutritional and metabolic diseases; M19.90 Unspecified osteoarthritis, unspecified site; F41.1 Generalized anxiety disorder; E78.00 Pure hypercholesterolemia, unspecified
CPT/HCPCS: 36415; 71046; 80053; 80061; 82550; 82553; 83036; 83690; 83735; 84484; 85025; 85379; 87070; 87635; 93005; 93010; 96374; 99285; C9803; J1650; J2765; J3490